=== PATIENT | male | born 1980 | race Caucasian/White ===

== ENCOUNTER 2020-06-20 09:08 | Outpatient (CLI) | payer OTHER | END 2020-06-20 23:59 | disposition home or self-care (01) | LOC: LAB 09:08 | PROVIDERS: ATTEND Internal Medicine Infectious Disease | DX: Z01.84 Encounter for antibody response examination (principal) ==

== ENCOUNTER 2020-06-21 11:26 | Outpatient (CLI) | payer OTHER | END 2020-06-21 23:59 | disposition home or self-care (01) | LOC: LAB 11:26 | DX: Z01.84 Encounter for antibody response examination (principal) ==

== ENCOUNTER 2021-01-23 17:25 | Outpatient (CLI) | payer OTHER | END 2021-01-23 23:59 | disposition home or self-care (01) | LOC: LAB 17:25 | PROVIDERS: ATTEND Internal Medicine Infectious Disease | DX: Z00.00 Encounter for general adult medical examination without abnormal findings (principal); Z78.9 Other specified health status ==

== ENCOUNTER 2021-03-08 06:15 | Emergency (ER) | payer OTHER | END 2021-03-09 06:53 | disposition home or self-care (01) | LOC: ER 06:15 | DX: S63.650A Sprain of metacarpophalangeal joint of right index finger, initial encounter (principal); S63.652A Sprain of metacarpophalangeal joint of right middle finger, initial encounter; X58.XXXA Exposure to other specified factors, initial encounter; Y93.89 Activity, other specified; Y92.89 Other specified places as the place of occurrence of the external cause; Y99.8 Other external cause status | CPT/HCPCS: 73130; 99283 ==

== ENCOUNTER 2021-06-26 22:15 | Emergency (ER) | payer BC, OTHER ==
[~2021-06-26] VITALS: Ht 188 cm; Wt 130.0 kg
[2021-06-27 00:13] VITALS: BP 175/100
== END 2021-06-27 00:15 | disposition home or self-care (01) ==
LOC: ER 22:16
DX: E16.2 Hypoglycemia, unspecified (principal); R55 Syncope and collapse; F17.200 Nicotine dependence, unspecified, uncomplicated; Z72.89 Other problems related to lifestyle
CPT/HCPCS: 82948; 93005; 99283; 99284

== ENCOUNTER 2024-12-14 18:13 | Emergency (ER) | payer BC ==
[~2024-12-14] VITALS: Ht 185.4 cm; Wt 122.7 kg
[2024-12-14] MEDS: normal saline 1000ml 1,000 ML IV ONE ×2 (18:27→19:05)
--- NOTE | 2024-12-14 18:41 | Physician Documentation ---
History of Present Illness ~ General Chief Complaint: See Chief Complaint Stated Complaint: DEHYDRATION Time Seen by MD: 18:40 Primary Medical Doctor: SAÚL History of Present Illness Initial Comments Patient presents to the emergency room for evaluation of generally feeling unusual along with some dizziness and anxiety. He endorses multiple life stre ssors including his sick father. He is feeling that has wits end. She denies any chest pain or any pain whatsoever. He feels he might be a bit dehydrated. He continues to urinate well. He has been dealing with some intermittent dizziness for some time. Denies SI/HI. Medication Reconciliation Allergies: Uncoded Allergies: NUTS (Allergy, Severe, 06/25/17) Past Medical History Past Medical History: No Pertinent History Past Surgical History: no surgical history Alcohol Use: Occasionally Drug Use: none Lives In: Home Occupation: employed Review of Systems ROS All review of systems negative except as per HPI Physical Exam Physical Exam Vital Signs: Temperature: 98.2, Source: Oral, Heart Rate: 91, Respiratory Rate: 17, BP: 173/116, Pulse Oximetry: 96, Weight: 122.730 Oxygen Flow Rate: 0 Physical Exam General: Patient is awake, alert, oriented x4 in no acute distress Head: Normocephalic and atraumatic. Eyes: Conjunctival normal. EOMI. PERRL. ENT: Mucous membranes moist. Neck: Supple, trachea is midline. Chest: Clear to auscultation bilaterally without rales, rhonchi, or wheezes. There is no accessory muscle use or retractions. Cardiac: RRR without murmurs, gallops, or rubs. Abd: Soft, nondistended, nontender, with normoactive bowel sounds. No guarding, rebound, or rigidity. Progress Results/Orders Results/Orders Completed Orders - ORVILLE TALLEY MD Normal Saline 1000ml (0.9% Sodium Chlori (12/14/24 18:30) Normal Saline 1000ml (0.9% Sodium Chlori (12/14/24 18:30) Diazepam Inj (Valium Inj) (12/14/24 18:45) Medications Received in ER Medications (Trade) Dose Ordered Sig/Lois Route PRN Reason Start Time Stop Time Status Last Admin Dose Admin Sodium Chloride 1,000 ml @ 1,000 mls/hr ONCE ONCE IV 12/14/24 18:30 12/14/24 19:29 DC 12/14/24 18:27 1,000 MLS/HR Sodium Chloride 1,000 ml @ 1,000 mls/hr ONCE ONCE IV 12/14/24 18:30 12/14/24 19:29 DC 12/14/24 19:05 1,000 MLS/HR (Valium inj) 5 mg ONCE ONCE IV 12/14/24 18:45 12/14/24 18:46 DC 12/14/24 19:02 5 MG Vital Signs 12/14/24 12/14/24 12/14/24 18:21 18:33 19:46 Temp 98.2 98.2 98.2 Pulse 102 91 68 Resp 18 17 16 B/P (MAP) 176/116 173/116 (135) 141/101 (114) Pulse Ox 98 96 99 O2 Flow Rate 0 0 0 Medical Decision Making Findings Patient presents to the emergency room feeling dehydrated and anxious as per HPI. Differentials include but are not limited to anxiety, panic attack, thyroid disorder, ACS, cardiac arrhythmia. Patient's vital signs are stable and he has responded to therapy and he had not feel emergent labs or imaging is necessary. He is feeling much better after anxiety medications and he feels well enough to go home. The need to follow up with his doctor discussed. ER precautions discussed. Departure Disposition: HOME / SELF CARE / HOMELESS Impression: Primary Impression: Anxiety Condition: Improved Discharge Instructions: Managing Anxiety, Adult Referrals: NO PRIMARY CARE PROVIDER (PCP) Education Educated: Patient Educated regarding: need for follow up Signature Scribe Signature: No scribe Attestation: The note accurately reflects work and decisions made by me.Orville Talley MD 12/14/24 19:59 ORVILLE TALLEY MD Dec 14, 2024 18:41
[2024-12-14] MEDS: diazepam inj 5 MG/ML inj. IV ONE (19:02)
[2024-12-14 20:05] VITALS: BP 128/88; PULSE 68; RESP 16; TEMP 98.6; O2SAT 99
== END 2024-12-14 20:06 | disposition home or self-care (01) ==
LOC: ER 18:14
DX: F41.9 Anxiety disorder, unspecified (principal); E86.0 Dehydration; Z72.89 Other problems related to lifestyle
CPT/HCPCS: 96361; 96374; 99283; J3360; J7030

== ENCOUNTER 2025-01-03 21:34 | Emergency (ER) | payer BC ==
[~2025-01-03] VITALS: Ht 185.4 cm; Wt 115.5 kg
[2025-01-03] MEDS: ketorolac trometh 30MG/ML vial 30 MG/ML VIAL IM ONE (21:42)
--- NOTE | 2025-01-03 21:42 | Physician Documentation ---
History of Present Illness ~ Stated Complaint: BACK PAIN Time Seen by MD: 21:35 OK to notify your PCP?: Yes Primary Medical Doctor: SAÚL Source: patient Mode of Arrival: POV Exam Limitations: no limitations HPI 44-year-old male presents with lower back musculoskeletal pain. He is requesting a Toradol injection. He has not taken any medication for his back pain prior to arrival. There is no known trauma to this area. He denies any urinary symptoms. Denies any saddle anesthesia or numbness or tingling down either leg. Patient is requesting medication refills sore anxiety. He states that he has been having increased situational anxiety revolving circumstances with his father. He states that he was taking gabapentin 100 mg as needed as well as propranolol 10 mg as needed although he has been out of these me dications for some time. He has plans to meet with a psychiatrist but is scheduled once out. Does not want any medication that causes too much of his sedative effect. Medication Reconciliation Allergies: Uncoded Allergies: NUTS (Allergy, Severe, 06/25/17) Scheduled Cyclobenzaprine* (Cyclobenzaprine*), 1 TAB PO Q8H Scheduled PRN Gabapentin (Neurontin), 1 CAP PO Q8H PRN for anxiety Propranolol Hcl* (Inderal*), 1 TAB PO Q12H PRN for anxiety Past Medical History Past Medical History: No Pertinent History Past Surgical History: no surgical history Alcohol Use: Occasionally Drug Use: none Lives In: Home Occupation: employed Review of Systems All Other Systems at this time: Reviewed and Negative Physical Exam Physical Exam Vital Signs: RN Vital Signs have been reviewed: Yes Pulse Oximetry Reflects: adequate oxygenation Physical Exam General: Alert, no distress. HEENT: No injection, moist mucous membranes. Neck: Full range of motion. Respiratory: No respiratory distress, equal chest rise and fall. Chest: No accessory muscle use. Cardiovascular: Regular rate and rhythm. Gastrointestinal: Nondistended. Extremities: Normal range of motion, no deformity. Back: Tenderness to palpation along left and right lumbar muscles. No midline tenderness. Neurologic: Oriented x4. Psychiatric: Normal mood and affect. Skin: Normal color, warm and dry. Progress Results/Orders Reviewed/noted all lab results: Yes Results/Orders Completed Orders - UMA SHAFFER MOTH PROOFER Ketorolac Trometh 30mg/Ml Vial (Toradol (01/03/25 21:35) Medications Received in ER Medications (Trade) Dose Ordered Sig/Lois Route PRN Reason Start Time Stop Time Status Last Admin Dose Admin (Toradol inj. 30mg/ml) 30 mg ONCE ONCE IM 01/03/25 21:35 01/03/25 21:37 DC 01/03/25 21:42 30 MG Vital Signs 01/03/25 21:48 Temp 98.2 Pulse 98 Resp 18 B/P (MAP) 155/88 Pulse Ox 99 O2 Flow Rate 0 Medical Decision Making Additional info obtained from: old records Findings He is requesting a Toradol injection for his muscular low back pain. He has not taken any medicines prior to arrival. I ordered a Toradol injection. He has no known kidney dysfunction or history of kidney stones. He has no urinary symptoms. For his pain I have prescribed Flexeril prescription sent to his pharmacy. 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 Return instructions as well as discharge instructions were given. For the anxiety, I gave gabapentin 300 mg up to 3 times a day as needed for anxiety as well as propranolol 10 mg up to twice a day as needed for anxiety. He used to take the 100 mg of gabapentin although he is unsure if this was entirely helpful so I have increased his dose to the 300 mg. These prescriptions all to his pharmacy. Differential Dx:Considerations: Include: AAA, Aortic dissection, Fracture, Urinary obstruction, Urolithiasis, Urinary tract infection Differential Diagnosis Cauda equina syndrome, lumbar radiculopathy. Departure Disposition: HOME / SELF CARE / HOMELESS Impression: Primary Impression: Musculoskeletal back pain Condition: Stable Discharge Instructions: Acute Back Pain, Adult Additional Instructions: Continue to use Tylenol and/or ibuprofen for pain relief. Can use the Flexeril as needed up to 3 times a day for pain relief. Use caution when driving when taking this medication. We can use a heating pad to help relax some of the muscles. Return back here for any new or worsening symptoms and follow up with the primary care in the next week. Continue with seeking an earlier appointment with her mental health provider. Referrals: NO PRIMARY CARE PROVIDER (PCP) Prescriptions Propranolol Hcl* (Inderal*) 10 Mg Tablet 1 TAB PO Q12H PRN for anxiety for 30 Days, #60 TAB Prov: UMA SHAFFER MOTH PROOFER 01/03/25 Gabapentin (Neurontin) 300 Mg Capsule 1 CAP PO Q8H PRN for anxiety for 30 Days, #90 CAP 0 Refills Prov: UMA SHAFFER 01/03/25 Cyclobenzaprine* (Cyclobenzaprine*) 10 Mg Tablet 1 TAB PO Q8H for muscle spasms for 10 Days, #30 TAB 0 Refills Prov: UMA SHAFFER 01/03/25 Education Educated: Patient Educated regarding: diagnosis, treatment, prognosis, need for follow up Additional Comment Medical Screen Exam This patient recieved a medical screening examination. After reviewing the individual's medical complaints with presenting symptoms and performing an appropriate physical examination, it was determined that no immediate life- threatening emergency medical condition is present. This individual is also not a women having contractions. Signature Scribe Signature: . Attestation: Scribed for Uma Shaffer by Uma Sotelo NP . 01/03/25 22:07 Parts of this note were created using [employer] voice recognition software program. While efforts were made to correct any mistakes made by this voice recognition software program, nonsensical phrases may remain in this note. In addition, there may be errors and syntax, grammar, content and spelling. UMA SHAFFER Jan 03, 2025 21:41
[2025-01-03] MEDS ORDERED: CYCL-1 PO (21:43)
[2025-01-03 21:48] VITALS: BP 155/88; PULSE 98; RESP 18; TEMP 98.2; O2SAT 99
[2025-01-03] MEDS ORDERED: PROP10TA10 PO (22:19)
[2025-01-03] MEDS ORDERED: GABA300C PO (22:19)
== END 2025-01-03 21:56 | disposition home or self-care (01) ==
LOC: ER 21:34
DX: M54.50 Low back pain, unspecified (principal); F41.9 Anxiety disorder, unspecified; Z76.0 Encounter for issue of repeat prescription; Z79.899 Other long term (current) drug therapy; Z72.89 Other problems related to lifestyle
CPT/HCPCS: 96372; 99283; J1885

== ENCOUNTER 2025-04-04 18:28 | Emergency (ER) | payer BC ==
[~2025-04-04] VITALS: Ht 185.4 cm; Wt 108.1 kg
[~2025-04-04 18:28] MED LIST: CYCL-1 PO; GABA300C PO
[2025-04-04] MEDS: normal saline 1000ml 1,000 ML IV ONE ×2 (19:09→21:06)
--- NOTE | 2025-04-04 19:12 | Physician Documentation ---
History of Present Illness General Chief Complaint: See Chief Complaint Stated Complaint: SEE CHIEF COMPLAINT Time Seen by MD: 18:29 Primary Medical Doctor: SAÚL History of Present Illness Initial Comments This is a 44-year-old gentleman who presents with a a request for medical evaluation and possible leave of absence. He states that he is under lot of stress as his father is terminally ill and he has a take care him. This caused a significant amount of depression which is going to treat it because he does not have a primary care provider. He states that for the last year he has been battling his depression that is linked to being a caregiver for his dad. He states that he lost approximately 80 lb in the last year, that he has a periods when he does not eat up to [address] He feels generally ill. No particular palliating factors. He does report that when he periods of not eating he is experiencing nausea and occasional vomiting. Does not self- induced. Reports generalized weakness, however denies any fever, chills, chest pain, difficulty breathing, abdominal pain, current nausea or vomiting, denies melena, hematochezia, blood in the stool or blood in urine. No concern for tobacco or alcohol misuse. Does not matter of fact the gentleman states that he stopped his alcohol consumption. Medication Reconciliation Allergies: Uncoded Allergies: NUTS (Allergy, Severe, 06/25/17) Scheduled Cyclobenzaprine* (Cyclobenzaprine*), 1 TAB PO Q8H Escitalopram Oxalate (Escitalopram Oxalate), 1 TAB PO DAILY Scheduled PRN Gabapentin (Neurontin), 1 CAP PO Q8H PRN for anxiety Past Medical History Past Medical History: No Pertinent History Past Surgical History: no surgical history Alcohol Use: Occasionally Drug Use: none Lives In: Home Occupation: employed Review of Systems ROS 10 point review of systems was performed and unless noted above in HPI is negative for acute process/complaint. Physical Exam Physical Exam Vital Signs: Temperature: 98.0, Source: Oral, Heart Rate: 106, Respiratory Rate: 14, BP: 168/113, Pulse Oximetry: 98, Weight: 108.100 Oxygen Flow Rate: 0 Physical Exam GENERAL: Awake, alert, oriented, GCS 15, no apparent distress, chronically ill appearing, answers questions, follows commands appropriately. Examined in room 1. HEENT: Atraumatic, normocephalic, pupils equal, extraocular muscles intact, sclerae is jaundiced, mucus membranes moist, oropharynx is clear, no stridor. NECK: supple, full active range of motion, trachea midline, no thyromegaly, no lymphadenopathy, no JVD. CARDIOVASCULAR: Tachycardic and regular rate/rhythm, no murmurs/gallops/rubs, Pulses are 2+ in all extremities and symmetric. Capillary refill less than 2 seconds. PULMONARY: Nonlabored, good air movement ,no respiratory distress, speaking in full sentences, clear to auscultation bilaterally, no wheezing, no ronchi, no rales, no accessory muscle use. GASTROINTESTINAL: Soft, non-tender, non-distended, normal active bowel sounds, no organomegaly, no pulsatile masses, no CVA tenderness. NEUROLOGIC: Lucid with normal mental status. Normal facial symmetry. Moves all extremities symmetrically and with purpose. No truncal ataxia. Speech is fluid without evidence of dysarthria or aphasia, no focal deficits appreciated. MUSCULOSKELETAL: There is full range of motion of all extremities. There is no joint pain or joint swelling or joint erythema. There is no muscle pain or tenderness or swelling. EXTREMITIES: warm, well-perfused, no cyanosis, no clubbing, no edema, no acute deformities. Skin: warm, dry, no rashes or lesions, mild jaundice, no petechiae orpurpura. No ecchymosis. PSYCHIATRIC: Normal affect, normal insight, normal concentration. Focused exam: [] Progress Results/Orders Results/Orders Completed Orders - WU FLORES DO Normal Saline 1000ml (0.9% Sodium Chlori (04/04/25 18:50) Normal Saline 1000ml (0.9% Sodium Chlori (04/04/25 18:50) Lorazepam Inj (Ativan Inj) (04/04/25 18:50) CMP (04/04/25 18:55) Diazepam Inj (Valium Inj) (04/04/25 19:20) Cbc/Diff (04/04/25 20:14) Electrocardiogram (04/04/25 20:59) Potassium Bicarb 20meq Eff Tab (Effer-K (04/04/25 21:05) Magnesium Sulf-Water 2g/50ml (Magnesium (04/04/25 21:10) Diazepam Inj (Valium Inj) (04/04/25 21:30) Medications Received in ER Medications (Trade) Dose Ordered Sig/Lois Route PRN Reason Start Time Stop Time Status Last Admin Dose Admin Sodium Chloride 1,000 ml @ 1,000 mls/hr ONCE ONCE IV 04/04/25 18:50 04/04/25 19:49 DC 04/04/25 19:09 1,000 MLS/HR Sodium Chloride 1,000 ml @ 1,000 mls/hr ONCE ONCE IV 04/04/25 18:50 04/04/25 19:49 DC 04/04/25 21:06 1,000 MLS/HR (Ativan inj) 1 mg ONCE ONCE IV 04/04/25 18:50 04/04/25 18:51 DC 04/04/25 19:07 1 MG (Valium inj) 5 mg ONCE ONCE IV 04/04/25 19:20 04/04/25 19:26 DC 04/04/25 19:52 5 MG (Effer-K 20 Meq Tablet Eff) 60 meq ONCE ONCE PO 04/04/25 21:05 04/04/25 21:06 DC 04/04/25 21:58 60 MEQ Magnesium Sulfate 50 ml @ 100 mls/hr ONCE ONCE IV 04/04/25 21:10 04/04/25 21:39 DC 04/04/25 21:50 100 MLS/HR (Valium inj) 5 mg ONCE ONCE IV 04/04/25 21:30 04/04/25 21:31 DC 04/04/25 21:39 5 MG Vital Signs 04/04/25 04/04/25 04/04/25 04/04/25 18:35 19:07 19:52 21:06 Temp 98.0 98.0 Pulse 106 85 Resp 14 16 18 16 B/P (MAP) 168/113 146/96 (113) Pulse Ox 98 97 O2 Flow Rate 0 0 04/04/25 04/04/25 21:39 21:48 Pulse 82 Resp 16 22 B/P (MAP) 142/88 (106) Pulse Ox 96 O2 Flow Rate 0 Laboratory Tests Test 04/04/25 20:10 White Blood Count 4.6 Red Blood Count 4.16 L Hemoglobin 15.0 Hematocrit 43.4 Mean Corpuscular Volume 104.3 H Mean Corpuscular Hemoglobin 36.0 H Mean Corpuscular Hemoglobin Concent 34.5 Red Cell Distribution Width 16.6 H Platelet Count 94 L Mean Platelet Volume 9.2 Neutrophils (%) (Auto) 77.8 H Lymphocytes (%) (Auto) 9.4 L Monocytes (%) (Auto) 11.5 Eosinophils (%) (Auto) 0.4 Basophils (%) (Auto) 0.9 Neutrophils # (Auto) 3.6 Lymphocytes # (Auto) 0.4 L Monocytes # (Auto) 0.5 Eosinophils # (Auto) 0.0 Basophils # (Auto) 0.0 CBC Comment Sodium Level 136 Potassium Level 2.7 *L Chloride Level 89 L Carbon Dioxide Level 30.1 Anion Gap 17 H Blood Urea Nitrogen 13 Creatinine 1.14 H Estimated GFR/1.73 m2 69 BUN/Creatinine Ratio 11.4 Glucose Level 93 Calcium Level 8.6 Total Bilirubin 5.6 H Aspartate Amino Transf (AST/SGOT) 129 H Alanine Aminotransferase (ALT/SGPT) 38 Alkaline Phosphatase 61 Total Protein 7.8 Albumin 3.1 L Globulin 4.7 H Albumin/Globulin Ratio 0.7 L Chemistry Comments EKG/XRAY/CT/US/VASC/MRI EKG : Additional Comment EKG was obtained and interpreted by myself shows sinus rhythm of 88, normal NV interval, narrow QRS, prolonged QTC, normal axis, no STEMI. Slight J-point depression in inferior leads, T-wave inversion in three, likely related to sticker placement. Slight J-point depression in V3 through V4 V5 and V6. Medical Decision Making Additional information obtaine: N/A Findings Facility Status: ED Holds, RME process The plan was discussed with the patient, who demonstrates clear understanding of the plan and is in agreement with the plan unless otherwise noted in the chart. All questions have been answered, all concerns were addressed unless otherwise documented. I was available throughout their ED stay for frequent reassessment and questions. Differential Diagnoses (considered and possible or likely): [Depression, including severe depression, secondary to external stressors such as his father . His starvation is concerning for dehydration, electrolyte derangement, starvation ketoacidosis, weight loss is obviously concerning any may be related to decreased caloric intake, however malignancy can not be excluded. New onset diabetes mellitus can not be excluded.] ??Differential Diagnoses (considered and unlikely, not requiring evaluation currently): [No evidence of lateralizing signs to suspect a stroke] MDM Data Please see HPI for the following: Independent Historians and external Records Review. Historian: [Patient] Independent Historians: ?[None] Medication Management: [Reviewed medication list] Social History and determinants: [Reviewed] Please see the body of the note for the following: Any independent interpretations of ECG, imaging studies. All vitals signs/haemodynamics, ordered tests were independently reviewed and interpreted by myself. Nursing triage complaint and vitals reviewed, additional nursing notes were reviewed as available and I agree unless otherwise noted or documented in contradiction in the chart Vital Signs: Independently reviewed Labs: Independently interpreted Imaging: Independently interpreted Old Medical Records: Independently reviewed, see HPI for relevant summary and information Pulse Oximetry: [97%] interpreted as [normal on room air] by me [Medical Accounts Receivable Specialist: Tachycardic Rate, Regular rhythm, no ectopy, sinus tachycardic. reviewed and interpreted by me] Additionally notably showing: [Hemodynamics reviewed. The patient is tachycardic on presentation, improved with fluids. No evidence of hypotension respiratory distress. No evidence of hypoxia. Laboratory studies showed no leukocytosis, normal hemoglobin, decreased platelets, macrocytosis noted. No significant neutrophilic predominance. Chemistry was obtained. It shows hypokalemia of 2.7. No acidosis. Slightly elevated creatinine. Elevated bilirubin at 5.6. Transaminitis and alcoholic pattern noted.] Tests considered but not ordered include: [Patient could definitely benefit from extensive laboratory workup and imaging, however by his own admission he is afraid to do the workup because he is afraid of what he might find. Therefore respecting patient's autonomy, only the labs that he allowed were ordered. Date: Apr 04, 2025 Time: 21:08 CT of the abdomen and pelvis was considered given painless jaundice. The elevated bilirubin could be related to his alcoholic liver disease, especially given macrocytosis, but pancreatic cancer sh e would not be discounted in the setting of painless jaundice central proven otherwise. Initially, patient was reluctant with a workup. Did not want any advanced imaging. ] Social Determinants of Health Impact: Patient was evaluated in [facility], or [facility] [place] access to healthcare due to below par ratio of patient to medical providers. [] Comorbid Conditions Impacting Present Evaluation and Care/Treatment: [] Management Discussions with other Healthcare Providers: [] Treatment and Disposition Medication Management (Given or considered): []. See EMR for details Consideration for Hospitalization/Escalation/Deescalation of Care: Admission for observation has been considered, [however the patient is able to tolerate p.o., their symptoms are controlled, they are able to rely on oral medications, and their chief complaint/diagnosis can be managed on outpatient basis.] ?ED Course:?[Date: Apr 04, 2025 Time: 22:17 discussed results with the patient. Explained to him that he will eventually need advanced imaging of the abdomen. He does not not want to receive it right now. He requests to be discharged and provided with a some time off work. ] ?Shared decision making:?[Patient is hemodynamically stable for discharge home with follow with their primary care provider. [The patient is currently not drinking. He intends to quit drinking completely. I think he could benefit from antidepressant, Lexapro appears to be most efficient safest 1st line psychotropic medication for depression and middle-aged man. 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 Discussed that he can not drink alcohol and take Valium at the same time as it will risks .] Specific and cautious return precautions provided and discussed with full understanding. Any incidental findings were also discussed and follow up recommendations given. [] All questions answered. Patient/family were able to verbalize back return precautions. Patient/family agree to plan. Copies of imaging and laboratory studies were provided.] Code status:?FULL Please see the full Electronic Medical Record for full details of nursing documentation, medications list, other records of complete past medical history and conditions, vital signs, laboratory studies, and any radiologic study interpretations by radiologists. Portions of this note were completed using [employer] dictation software and as a result there may exist minor errors in spelling. I have reviewed elements of past family and social history and agree as included in note. Differential Diagnosis See body of main note for differential diagnosis Departure Disposition: 01 HOME / SELF CARE / HOMELESS Impression: Primary Impression: Generalized weakness Additional Impressions: Malaise Hypokalemia Elevated bilirubin Painless jaundice Transaminitis Depression Unintended weight loss Condition: Improved Discharge Instructions: Hypokalemia, Jaundice, Adult, Managing Depression, Adult, Weakness Additional Instructions: Today you were evaluated for feeling sick, weak, and unintentional weight loss of 80 lb over the last year. Your laboratory workup was notable for elevated bilirubin and mildly elevated liver enzymes. This could be related to drinking. At some point in time you will need a CT of the abdomen and pelvis to evaluate extent of liver disease. You has been drink free for the last four or five days, police continued to be sober. Do not drink as it may increase liver damage. You were started on antidepressant medication called escitalopram. Take it everyday as prescribed. You were also given Valium to use as needed for panic attacks. Did not drink alcohol at all while using Valium as it may result in respiratory depression and . Departure Forms: Excuse form Work or School Excused From: Work Excuse beginning now through the following date: May 05, 2025 Referrals: NO PRIMARY CARE PROVIDER (PCP) Prescriptions Diazepam (Valium) 5 Mg Tablet 1 TAB PO Q12H PRN PRN for anxiety for 30 Days, #15 TAB 0 Refills Prov: WU FLORES DO 04/04/25 Escitalopram Oxalate (Escitalopram Oxalate) 10 Mg Tablet 1 TAB PO DAILY for 30 Days, #30 TAB 3 Refills Prov: WU FLORES DO 04/04/25 Education Educated: Patient Educated regarding: diagnosis, treatment, prognosis, need for follow up Signature Scribe Signature: No scribe Attestation: The note accurately reflects work and decisions made by me.Wu Flores DO 04/04/25 19:13 WU FLORES DO Apr 04, 2025 19:12
[2025-04-04] MEDS ORDERED: ESCI-8 PO (19:25)
[2025-04-04] MEDS: diazepam inj 5 MG/ML inj. IV ONE ×2 (19:52→21:39)
[2025-04-04 20:36] LABS: MEAN PLATELET VOLUME 9.2 FL (7.4-10.4); RED CELL DISTRIBUTION WIDTH 16.6 % (11.5-14.5)
[2025-04-04 20:48] LABS: CREATININE 1.14 MG/DL (0.60-1.10); TOTAL CARBON DIOXIDE 30.1 MMOL/L (24-32); eCRCL 92 ML/MIN; eGFR 69 ML/MIN
--- NOTE | 2025-04-04 21:04 | ELECTROCARDIOGRAPH REPORT ---
[facility] Test Date: 2025-04-04 Test Time: 21:00:57 Pat Name: MICHELLE JAMESON Department: EMERGENCY ROOM Patient ID: [facility]-[id number] Room: Gender: M [employer] Security Director: : 1980 Requested By: DANIELA FLORES Order Number: [id number] Reading MD: Dr. ETTA Yeung Measurements Intervals Melissa Rate: 88 P: 78 UT: 185 QRS: 88 QRSD: 101 T: -10 QT: 397 QTc: 481 Interpretive Statements Sinus rhythm Borderline T abnormalities, inferior leads Borderline prolonged QT interval Electronically Signed On 04-06-2025 18:39:[address] ETTA Yeung Please click the below link to view image of tracing.
[2025-04-04] MEDS: magnesium sulf-water 2g/50mL 50 ML IV ONE (21:50)
[2025-04-04] MEDS: POTASSIUM BICARB 20meq eff tab 20 MEQ TABLET.EFF PO ONE (21:58)
[2025-04-04] MEDS ORDERED: DIAZ5TAB PO (22:22)
[2025-04-05] MEDS: ondansetron 4mg rapidly disintigrating tab PO ONE (00:21)
[2025-04-05 00:55] VITALS: BP 145/82; PULSE 84; RESP 14; TEMP 98; O2SAT 98
== END 2025-04-05 00:59 | disposition home or self-care (01) ==
LOC: ER 18:29
DX: R53.1 Weakness (principal); R53.81 Other malaise; R17 Unspecified jaundice; R74.01 Elevation of levels of liver transaminase levels; R63.4 Abnormal weight loss; E87.6 Hypokalemia; F32.A Depression, unspecified; Z79.899 Other long term (current) drug therapy; Z72.89 Other problems related to lifestyle
CPT/HCPCS: 36415; 80053; 85025; 93005; 96361; 96365; 96375; 96376; 99284; J2060; J3360; J7030

== ENCOUNTER 2025-04-10 04:19 | Emergency (ER) | payer BC ==
[~2025-04-10] VITALS: Ht 185.4 cm; Wt 116.6 kg
[~2025-04-10 04:19] MED LIST changes: +DIAZ5TAB PO; +ESCI-8 PO
[2025-04-10 04:26] VITALS: TEMP 97.7
[2025-04-10] MEDS: normal saline 1000ml 1,000 ML IV ONE (05:48)
[2025-04-10] MEDS: ondansetron/PF 4mg/2ml inj IV ONE (05:49)
[2025-04-10 06:40] VITALS: BP 165/102; PULSE 92; RESP 18; O2SAT 95
--- NOTE | 2025-04-10 06:40 | Physician Documentation ---
History of Present Illness ~ General Chief Complaint: Weakness Stated Complaint: DEHYDRATION Time Seen by MD: 06:12 Primary Medical Doctor: SAÚL Source: patient (7), old records Mode of Arrival: POV History of Present Illness Initial Comments Pt comes in for hydration and meds. He has a hx of recent weight loss and malaise/nausea/diarrhea, mostly since a bout with CoviD one month ago. He was seen 04/04/25 in ED and found to have elevated bilirubin, felt to be due to alcoholic liver disease, has subsequently stopped alcohol and tobacco intake. He was seen by Dr. rowe in the ED who plans to see him again 04/17 to continue workup including imaging, and comes in because he has felt nauseated and had a hard time keeping fluids down. He was seen by the ED physician this morning and received 2L fluid and is feeling better now. Pt reports he has had a chronic cough with posttussive emesis, and loose stools about 3 times per day. No liquid stool, no foul odor, no evidence for C diff colitis. Patient also reports some vertigo which has been bothering him for the last two weeks, with history of same. Medication Reconciliation Allergies: Uncoded Allergies: NUTS (Allergy, Severe, 06/25/17) Scheduled Cyclobenzaprine* (Cyclobenzaprine*), 1 TAB PO Q8H Escitalopram Oxalate (Escitalopram Oxalate), 1 TAB PO DAILY Meclizine HCl (Meclizine HCl), 1 TAB PO Q8H Scheduled PRN Diazepam (Valium), 1 TAB PO Q12H PRN PRN for anxiety Gabapentin (Neurontin), 1 CAP PO Q8H PRN for anxiety Ondansetron 8mg ODT (Ondansetron Odt), 1 TAB PO TID PRN for nausea/vomiting Past Medical History Past Medical History: Vertigo Past Surgical History: no surgical history Smoking Status: Former smoker Alcohol Use: Sober Drug Use: none Lives In: Home Occupation: employed Review of Systems All Other Systems at this time: Reviewed and Negative Physical Exam Physical Exam Vital Signs: Temperature: 97.7, Heart Rate: 98, Respiratory Rate: 16, BP: 163/108, Pulse Oximetry: 97, Weight: 116.600 Oxygen Flow Rate: 0 Physical Exam General: Pt is awake, alert, oriented x4 in no acute distress and well appearing. Head: Normocephalic and atraumatic. Eyes: Conjunctiva normal. Minimally jaundiced today ENT: Mucous membranes moist. Neck: Supple. Chest: Clear to auscultation bilaterally, without rales, rhonchi, or wheezes. There is no accessory muscle use or retractions. Cardiac: Regular rate and rhythm without murmurs, gallops or rubs. Palpation of the chest wall is normal. Abd: Soft, nondistended, nontender, with normoactive bowel sounds. No guarding or rebound. Extremities: Within normal limits without cyanosis, clubbing, or edema. Skin: [place], warm and dry with no significant rash appreciated. Neuro: Cranial nerves II-XII grossly intact. Motor strength 5/5 in all four extremities The gait is normal. Progress Results/Orders Results/Orders Vital Signs 04/10/25 04/10/25 04:26 06:40 Temp 97.7 Pulse 98 92 Resp 16 18 B/P (MAP) 163/108 165/102 (123) Pulse Ox 97 95 O2 Flow Rate 0 0 Medical Decision Making Additional information obtaine: old records Findings Differential Diagnosis Patient presenting with weakness, weight loss, some dizziness, some nausea, some diarrhea, and poor appetite. Dr. Rowe was appropriately concerned when he saw him last, and is planning a further workup with a visit next week. Patient apparently does not have a primary care doctor, and would like to wait until he sees Dr. Rowe for any further workup. Patient requested fluids and medications only, and as his case is not any worse at this time, indeed his jaundice seems to be improving, patient has been made comfortable, being dischar ge with medication for nausea and for dizziness. He understands to return to the emergency department if he has any new symptoms or concerns, or if he decides he would like to proceed with workup earlier than his scheduled visit with Dr. Rowe. Departure Time of Disposition: 06:44 Disposition: HOME / SELF CARE / HOMELESS Impression: Primary Impression: Dehydration Additional Impressions: Elevated bilirubin Unintended weight loss Condition: Stable Discharge Instructions: Dehydration, Adult Additional Instructions: Do not fail to come back for your further workup with Dr. Rowe, to have further information about your symptoms. Please return to the emergency department if you develop new, worsening, or alarming symptoms, or if you decide you want to continue your workup prior to your scheduled visit with Dr. Rowe. Referrals: NO PRIMARY CARE PROVIDER (PCP) Prescriptions Meclizine HCl (Meclizine HCl) 12.5 Mg Tablet 1 TAB PO Q8H for dizziness for 10 Days, #30 TAB 0 Refills Prov: ERIC DEL CID MD 04/10/25 Ondansetron 8mg ODT (Ondansetron Odt) 8 Mg Tab.rapdis 1 TAB PO TID PRN for nausea/vomiting, #10 TAB Prov: ERIC DEL CID MD 04/10/25 Education Educated: Patient Educated regarding: diagnosis, treatment Signature Scribe Signature: Attestation: ERIC DEL CID MD Apr 10, 2025 06:40
[2025-04-10] MEDS ORDERED: MECL-226 PO (06:46)
[2025-04-10] MEDS ORDERED: ONDA-245 PO (06:46)
== END 2025-04-10 06:55 | disposition home or self-care (01) ==
LOC: ER 04:19
DX: E86.0 Dehydration (principal); R63.4 Abnormal weight loss; Z68.33 Body mass index [BMI] 33.0-33.9, adult; Z79.899 Other long term (current) drug therapy
CPT/HCPCS: 96361; 96374; 99283; J2405; J7030